=== PATIENT | male | born 1970 | race African-American/Black ===

== ENCOUNTER 2024-12-06 03:02 | Inpatient (IN) | payer OTHER ==
[~2024-12-06] VITALS: Ht 182.9 cm; Wt 122.5 kg
[2024-12-06] VITALS (12 sets, daily range): BP systolic 145–159; BP diastolic 93–109; PULSE 91–119; RESP 12–22; TEMP 36.3–36.6; O2SAT 90–98
[2024-12-06 03:51] LABS: CLARITY URINE CLEAR (CLEAR); COLOR URINE YELLOW (YELLOW); GLUCOSE URINE 2+ (NEGATIVE); KETONES URINE NEGATIVE (NEGATIVE); LEUKOCYTE ESTERASE URINE NEGATIVE (NEGATIVE); NITRITE URINE NEGATIVE (NEGATIVE); OCCULT BLOOD URINE 1+ (NEGATIVE); PROTEIN URINE 3+ (NEGATIVE); SPECIFIC GRAVITY URINE 1.013 (1.005-1.030); UROBILINOGEN URINE 0.2 E.U./dL (0.2-1.0)
[2024-12-06 03:58] LABS: BASOPHILS % 0.6 % (0.0-2.0); EOSINOPHILS % 4.1 % (0.0-5.0); HEMATOCRIT. 41.9 % (42.0-52.0); HEMOGLOBIN. 13.7 g/dL (14.0-18.0); LYMPHOCYTES % 31.2 % (20.0-50.0); MEAN CORPUSCULAR HEMOGLOBIN 28.7 pg (28.0-32.0); MEAN CORPUSCULAR HGB CONC 32.7 g/dL (31.0-37.0); MEAN CORPUSCULAR VOLUME 87.6 fL (80.0-94.0); MEAN PLATELET VOLUME 9.6 fl (7.4-10.4); MONOCYTES % 5.3 % (2.0-8.0); NEUTROPHILS % 58.8 % (40.0-76.0); PLATELET 238 x1000/uL (130-400); RED BLOOD CELL COUNT 4.78 mill/uL (4.7-6.1); RED CELL DISTRIBUTION WIDTH 13.7 % (11.6-14.6); WHITE BLOOD COUNT 12.1 x1000/uL (4.5-11.0)
[2024-12-06 04:04] LABS: CHLORIDE 108 mEq/L (98-107); SODIUM 141 mEq/L (136-145)
[2024-12-06 04:05] LABS: CALCIUM 8.7 mg/dL (8.7-10.4); CARBON DIOXIDE 24 mEq/L (21-32)
[2024-12-06 04:10] LABS: CREATININE 2.7 mg/dL (0.6-1.3); ETHANOL BLOOD < 10 mg/dL (<10); GLUCOSE 274 mg/dL (70-105); UREA NITROGEN BLOOD 28 mg/dL (9-23)
[2024-12-06 04:11] LABS: TROPONIN I HIGH SENSITIVITY 27 ng/L (3.0-53)
[2024-12-06 04:12] LABS: ALANINE AMINOTRANSFERASE 116 IU/L (10-49); ALBUMIN 4.2 g/dL (3.2-4.8); ASPARTATE AMINOTRANSFERASE 97 IU/L (<34); BILIRUBIN DIRECT 0.1 mg/dL (<=3.0); BILIRUBIN TOTAL 0.3 mg/dL (0.1-1.0); PROTEIN TOTAL 7.4 g/dL (6.0-8.3)
[2024-12-06 04:14] LABS: BG BASE EXCESS -3.5 mmol/L (-2.0-3.0); BG CARBOXYHEMOGLOBIN 0.4 % (0.5-1.5); BG DEOXYHEMOGLOBIN 1.3 % (0.0-5.0); BG FRACTION INSPIRED OXYGEN 100; BG HCO3 ACT 22.4 mmol/L (21.0-28.0); BG METHEMOGLOBIN 0.3 % (0.5-1.5); BG OXYGEN SATURATION 98.7 % (94.0-98.0); BG PCO2 43.5 mmHg (35.0-48.0); BG SAMPLE SITE RIGHT RADIAL; BG TOTAL HEMOGLOBIN 13.8 g/dL (13.5-17.5); BG VENT MODE MASK - NRB
[2024-12-06 04:16] LABS: PROTHROMBIN TIME 11.1 sec (9.6-11.0)
[2024-12-06 04:19] LABS: LACTIC ACID 2.1 mmol/L (0.4-2.0)
[2024-12-06] MEDS: SODIUM CHLORIDE 0.9% IV SCH (04:27)
[2024-12-06] MEDS: SODIUM CHLORIDE 0.9% 1,000 ML IV SCH (04:50)
[2024-12-06 04:55] LABS: BACTERIA URINE NONE SEEN; SQUAMOUS EPITHELIAL CELL URINE NONE SEEN /lpf (RARE/1+); WBC URINE 0-2 /hpf (0-2)
[2024-12-06] MEDS: PIPERACILLIN/TAZO 3.375G/50ML 50 ML IV SCH (04:57)
[2024-12-06] MEDS: VANCOMYCIN 1G PREMIX 200 ML IV SCH (05:11)
[2024-12-06] MEDS: ALBUTEROL (0.083%) 2.5MG/3ML NEB HHN SCH (05:35)
[2024-12-06] MEDS ORDERED: IPRATROPIUM/ALBUTEROL 0.5-3(2.5)MG/3ML NEB HHN PRN (08:00)
[2024-12-06] MEDS ORDERED: ACETAMINOPHEN 325MG TABLET PO PRN ×2 (08:00)
[2024-12-06] MEDS ORDERED: ONDANSETRON HCL 4MG/2ML INJ IV PRN (08:00)
[2024-12-06] MEDS ORDERED: DOCUSATE SODIUM 100MG CAPSULE PO PRN (08:00)
[2024-12-06] MEDS: CLONIDINE 0.1MG TABLET PO PRN (09:58)
[2024-12-06 11:54] LABS: INFLUENZA TYPE A Presumptive Negative (Pres. Neg.); INFLUENZA TYPE B Presumptive Negative (Pres. Neg.)
[2024-12-06] MEDS ORDERED: DEXTROSE 50% WATER 50ML SYRINGE IV PRN (12:15)
[2024-12-06] MEDS: IPRATROPIUM BROMIDE (0.02%) 0.5MG/2.5ML NEB HHN SCH (12:32)
[2024-12-06] MEDS: AZITHROMYCIN 250 MG TABLET PO SCH (12:42)
[2024-12-06] MEDS: FUROSEMIDE 40MG/4ML VIAL IVP SCH (12:42)
[2024-12-06] MEDS: CEFTRIAXONE 1GM/50ML 50 ML IV SCH (12:43)
[2024-12-06] MEDS: BLOOD SUGAR DIAGNOSTIC STRIP TEST SCH (12:48)
[2024-12-06] MEDS: INSULIN LISPRO 100 UNITS/ML SUBCUT SCH (12:58)
[2024-12-06 14:04] LABS: CREATINE KINASE 361 IU/L (46-171); PHOSPHORUS 3.3 mg/dL (2.5-4.9)
[2024-12-06 14:08] LABS: T4 FREE 1.26 ng/dL (0.89-1.76); THYROID STIMULATING HORMONE 1.28 uIU/mL (0.55-4.78)
[2024-12-06 14:19] LABS: HEPATITIS B SURFACE ANTIGEN NEGATIVE (Negative)
[2024-12-06 14:39] LABS: HEPATITIS A AB IGM NEGATIVE (Negative)
[2024-12-06 14:40] LABS: HEPATITIS B CORE AB IGM NEGATIVE (Negative); HEPATITIS C AB NON REACTIVE (Neg) (Negative)
[2024-12-07] VITALS (10 sets, daily range): BP systolic 131–150; BP diastolic 91–102; PULSE 83–91; RESP 13–19; TEMP 36.4–36.6; O2SAT 93–99
[2024-12-07 06:30] LABS: BASOPHILS % 0.7 % (0.0-2.0); EOSINOPHILS % 2.6 % (0.0-5.0); HEMOGLOBIN. 11.7 g/dL (14.0-18.0); LYMPHOCYTES % 19.3 % (20.0-50.0); MEAN CORPUSCULAR HGB CONC 33.3 g/dL (31.0-37.0); MEAN CORPUSCULAR VOLUME 87.2 fL (80.0-94.0); MEAN PLATELET VOLUME 9.9 fl (7.4-10.4); NEUTROPHILS % 71.4 % (40.0-76.0); PLATELET 172 x1000/uL (130-400); RED BLOOD CELL COUNT 4.01 mill/uL (4.7-6.1); RED CELL DISTRIBUTION WIDTH 13.6 % (11.6-14.6); WHITE BLOOD COUNT 9.4 x1000/uL (4.5-11.0)
[2024-12-07 06:38] LABS: CHLORIDE 108 mEq/L (98-107); SODIUM 140 mEq/L (136-145)
[2024-12-07 06:39] LABS: CALCIUM 8.4 mg/dL (8.7-10.4); CARBON DIOXIDE 22 mEq/L (21-32)
[2024-12-07 06:44] LABS: CREATININE 2.7 mg/dL (0.6-1.3); GLUCOSE 190 mg/dL (70-105); UREA NITROGEN BLOOD 30 mg/dL (9-23)
[2024-12-07 06:46] LABS: ALANINE AMINOTRANSFERASE 57 IU/L (10-49); ALBUMIN 3.4 g/dL (3.2-4.8); ASPARTATE AMINOTRANSFERASE 21 IU/L (<34); BILIRUBIN TOTAL 0.4 mg/dL (0.1-1.0)
[2024-12-07 08:17] LABS: *AMPHETAMINES SCREEN URINE NEGATIVE (NEGATIVE); *BARBITURATES SCREEN URINE NEGATIVE (NEGATIVE); *BENZODIAZEPINES SCREEN URINE NEGATIVE (NEGATIVE); *COCAINE SCREEN URINE NEGATIVE (NEGATIVE); CANNABINOID URINE SCREEN NEGATIVE (NEGATIVE); ECSTASY MDMA SCREEN URINE NEGATIVE (NEGATIVE); METHADONE URINE SCREEN NEGATIVE (NEGATIVE); OPIATES URINE SCREEN NEGATIVE (NEGATIVE); PHENCYCLIDINE URINE SCREEN NEGATIVE (NEGATIVE)
[2024-12-08 09:10] LABS: COMPLEMENT C3 123 mg/dL (82-167); COMPLEMENT C4 22 mg/dL (12-38)
[2024-12-08 10:07] LABS: ANTI-NUCLEAR ANTIBODIES DIRECT Negative (Negative)
== END 2024-12-07 14:35 | disposition short-term general hospital (02) | DRG 189 ==
LOC: ER 03:02 → 5EST 04:52 → EDBEDREQTM 05:22 → EDBEDREQ 05:22 → ENRESERV 05:26
PROVIDERS: ADMIT Internal Medicine; ATTEND Internal Medicine
DX: J96.01 Acute respiratory failure with hypoxia (principal); I16.1 Hypertensive emergency; E87.20 Acidosis, unspecified; E66.2 Morbid (severe) obesity with alveolar hypoventilation; N17.9 Acute kidney failure, unspecified; I50.40 Unspecified combined systolic (congestive) and diastolic (congestive) heart failure; I13.0 Hypertensive heart and chronic kidney disease with heart failure and stage 1 through stage 4 chronic kidney disease, or unspecified chronic kidney disease; E11.22 Type 2 diabetes mellitus with diabetic chronic kidney disease; D64.9 Anemia, unspecified; R74.8 Abnormal levels of other serum enzymes; R74.01 Elevation of levels of liver transaminase levels; E78.00 Pure hypercholesterolemia, unspecified; N18.9 Chronic kidney disease, unspecified; Z79.899 Other long term (current) drug therapy; Z79.4 Long term (current) use of insulin; Z68.36 Body mass index [BMI] 36.0-36.9, adult
CPT/HCPCS: 36415; 36600; 71045; 76700; 80048; 80053; 80076; 80305; 80320; 81003; 82375; 82550; 82805; 82962; 83036; 83605; 83735; 83880; 84100; 84145; 84439; 84443; 84481; 84484; 85025; 86038; 86160; 86705; 86709; 86850; 86900; 87340; 87426; 87804; 93005; 93306; 94070; 94640; 94660; 94664; 99291; J0696; J1815; J1940; J2543; J3370; G0480